=== PATIENT | female | born 1985 | race Caucasian/White ===

== ENCOUNTER → 2017-08-21 | Outpatient (CLI) | payer OTHER ==
--- NOTE | 2017-08-21 18:56 | REP ---
Left shoulder three views : There is no fracture or dislocation. Mineralization and joint spaces are normal. There are no calcifications or foreign bodies. Impression: Negative left shoulder . Signed by Artie Jean MD 08/21/2017 06:48 P
== END ==
LOC: M LRY 17:23
PROVIDERS: ATTEND Nurse Practitioner Family
DX: M25.512 Pain in left shoulder (principal)

== ENCOUNTER → 2019-08-08 | Outpatient (CLI) | payer BC, OTHER ==
--- NOTE | 2019-08-08 15:00 | REP ---
LEFT HAND, FOUR VIEWS: There is no evidence of an acute fracture, dislocation or intrinsic bone disease. IMPRESSION: No fracture or dislocation. Electronically Signed by Artie Ibrahim MD 08/08/2019 03:19 P
== END ==
LOC: M LRY 13:46
PROVIDERS: ATTEND Nurse Practitioner Family
DX: S69.92XA Unspecified injury of left wrist, hand and finger(s), initial encounter (principal); X58.XXXA Exposure to other specified factors, initial encounter; Y92.9 Unspecified place or not applicable

== ENCOUNTER 2019-08-21 10:21 | Emergency (ER) | payer BC, OTHER ==
[~2019-08-21] VITALS: Ht 162.6 cm; Wt 59.9 kg
[2019-08-21 10:21] VITALS: BP 140/88
[2019-08-21] MEDS ORDERED: PRED10TA2 PO (10:53)
[2019-08-21] MEDS ORDERED: predniSONE 20 MG TAB PO ONE (11:00)
== END 2019-08-21 11:00 | disposition home or self-care (01) ==
LOC: M ED 10:21
DX: L24.9 Irritant contact dermatitis, unspecified cause (principal)

== ENCOUNTER 2020-11-02 12:58 | Emergency (ER) | payer BC ==
[~2020-11-02] VITALS: Ht 162.6 cm; Wt 69.5 kg
[~2020-11-02 12:58] MED LIST: PRED10TA2 PO
[2020-11-02 13:43] LABS: BASO # 0.1 10^3/uL (0.0-0.2); BASO % 0.9 % (0.0-1.0); EOS # 0.2 10^3/uL (0.0-0.5); EOS % 1.9 % (0.0-3.0); HEMOGLOBIN 13.2 g/dl (12.0-15.5); LYMPH # 2.3 10^3/uL (1.5-5.0); LYMPH % 25.1 % (24.0-44.0); MEAN CORPUSCULAR HEMOGLOBIN 30.8 pg (27.0-33.0); MEAN CORPUSCULAR HGB CONC 32.2 g/dl (32.0-36.5); MEAN CORPUSCULAR VOLUME 95.8 fl (80.0-96.0); MONO # 0.7 10^3/uL (0.0-0.8); MONO % 7.2 % (0.0-5.0); NEUTROPHILS % 64.7 % (36.0-66.0); PLATELET COUNT, AUTOMATED 256 10^3/uL (150-450); RED BLOOD COUNT 4.28 10^6/uL (4.00-5.40); WHITE BLOOD COUNT 9.3 10^3/uL (4.0-10.0)
[2020-11-02 14:04] LABS: ALBUMIN 4.3 GM/DL (3.2-5.2); ALT/SGPT 19 U/L (12-78); BILIRUBIN,DIRECT < 0.1 MG/DL (0.0-0.2); BILIRUBIN,TOTAL 0.3 MG/DL (0.2-1.0); BLOOD UREA NITROGEN 9 MG/DL (7-18); CALCIUM LEVEL 9.6 MG/DL (8.5-10.1); CARBON DIOXIDE LEVEL 28 MEQ/L (21-32); CHLORIDE LEVEL 105 MEQ/L (98-107); CREATININE FOR GFR 0.83 MG/DL (0.55-1.30); GLOMERULAR FILTRATION RATE > 60.0 (>60); GLUCOSE, FASTING 78 MG/DL (70-100); LIPASE 45 U/L (73-393); POTASSIUM SERUM 4.2 MEQ/L (3.5-5.1); SODIUM LEVEL 137 MEQ/L (136-145)
[2020-11-02 14:06] LABS: HCG, SERUM QUALITATIVE NEGATIVE (NEGATIVE)
--- NOTE | 2020-11-02 16:02 | REP ---
INDICATION: pelvic cramping. COMPARISON: None. TECHNIQUE: Transabdominal scanning performed. FINDINGS: Uterine dimensions are 6.6 x 3.5 x 4.1 cm. Endometrial echo is 9 mm in AP dimension and centrally placed. The bladder is empty . The right ovary has dimensions of 3.0 x 2.9 x 2.5 cm. It's Doppler flow is normal with a resistive index of 0.51. The left ovary dimensions are 2.7 x 1.2 x 1.6 cm. It's Doppler flow was normal with resistive index of 0.66. There is no adnexal mass identified. No free fluid is seen in the cul-de-sac. IMPRESSION: Negative pelvic ultrasound. <Electronically signed by Artie Ibrahim > 11/02/20 [id number]
[2020-11-02] MEDS ORDERED: FLAG500T PO (17:10)
[2020-11-02] MEDS ORDERED: metroNIDAZOLE (FLAGYL) 500MG TABLET PO ONE (17:15)
[2020-11-02 17:19] VITALS: BP 131/69
[2020-11-02 17:59] LABS: CHLAMYDIA DNA AMPLIFICATION NEGATIVE (NEGATIVE); GC DNA AMPLIFICATION NEGATIVE (NEGATIVE)
== END 2020-11-02 17:21 | disposition home or self-care (01) ==
LOC: M ED 12:58
DX: N76.0 Acute vaginitis (principal); Z87.440 Personal history of urinary (tract) infections

== ENCOUNTER → 2021-11-03 | Outpatient (REF) | payer BC ==
[~2021-11-03] MED LIST changes: +FLAG500T PO
[2021-11-03 13:11] LABS: HEMATOCRIT 35.5 % (36.0-47.0); HEMOGLOBIN 12.1 g/dl (12.0-15.5); MEAN CORPUSCULAR HEMOGLOBIN 31.5 pg (27.0-33.0); MEAN CORPUSCULAR HGB CONC 34.1 g/dl (32.0-36.5); MEAN CORPUSCULAR VOLUME 92.4 fl (80.0-96.0); PLATELET COUNT, AUTOMATED 271 10^3/uL (150-450); RED BLOOD COUNT 3.84 10^6/uL (4.00-5.40); WHITE BLOOD COUNT 9.8 10^3/uL (4.0-10.0)
[2021-11-03 14:10] LABS: HCG, SERUM QUANTITATIVE 38149 MIU/ML; HEPATITIS B SURFACE ANTIGEN NEGATIVE (NEGATIVE)
[2021-11-03 14:30] LABS: HEPATITIS C VIRUS ABY INDEX 0.1 INDEX (<0.8)
[2021-11-03 14:31] LABS: HIV 1&2 SCREEN CENTAUR NEGATIVE (NEGATIVE)
== END ==
LOC: M LAB REF 12:21
PROVIDERS: ATTEND Obstetrics & Gynecology
DX: Z32.01 Encounter for pregnancy test, result positive (principal)

== ENCOUNTER → 2022-02-27 | Outpatient (CLI) | payer BC ==
[2022-02-27 13:43] LABS: HEMATOCRIT 30.9 % (36.0-47.0); HEMOGLOBIN 10.1 g/dl (12.0-15.5); MEAN CORPUSCULAR HEMOGLOBIN 31.6 pg (27.0-33.0); MEAN CORPUSCULAR HGB CONC 32.7 g/dl (32.0-36.5); MEAN CORPUSCULAR VOLUME 96.6 fl (80.0-96.0); PLATELET COUNT, AUTOMATED 262 10^3/uL (150-450); WHITE BLOOD COUNT 14.6 10^3/uL (4.0-10.0)
== END ==
LOC: M PLALAB 09:17
PROVIDERS: ATTEND Obstetrics & Gynecology
DX: O34.211 Maternal care for low transverse scar from previous cesarean delivery (principal)

== ENCOUNTER → 2022-03-02 | Outpatient (CLI) | payer BC | LOC: M WHC 06:51 | PROVIDERS: ATTEND Obstetrics & Gynecology | DX: O34.211 Maternal care for low transverse scar from previous cesarean delivery (principal) ==

== ENCOUNTER → 2022-04-04 | Outpatient (CLI) | payer BC ==
[~2022-04-04] MED LIST changes: +FAMO1TAB11; +FERR325T19
== END ==
LOC: M WHC 13:29
PROVIDERS: ATTEND Obstetrics & Gynecology
DX: Z36.2 Encounter for other antenatal screening follow-up (principal); O40.3XX0 Polyhydramnios, third trimester, not applicable or unspecified; O34.211 Maternal care for low transverse scar from previous cesarean delivery; Z3A.34 34 weeks gestation of pregnancy

== ENCOUNTER → 2022-04-18 | Outpatient (CLI) | payer BC | LOC: M RAD 13:22 | PROVIDERS: ATTEND Obstetrics & Gynecology | DX: O34.211 Maternal care for low transverse scar from previous cesarean delivery (principal) ==

== ENCOUNTER → 2022-05-03 | Outpatient (CLI) | payer BC | LOC: M LABSMTC 10:38 | PROVIDERS: ATTEND Anesthesiology | DX: Z01.812 Encounter for preprocedural laboratory examination (principal) ==

== ENCOUNTER 2022-05-08 05:23 | Inpatient (IN) | payer BC ==
[2022-05-08] VITALS (8 sets, daily range): BP systolic 99–112; BP diastolic 53–65
[~2022-05-08] VITALS: Ht 162.6 cm; Wt 80.4 kg
[2022-05-08] MEDS ORDERED: LR 1,000 ML IV ONE (05:30)
[2022-05-08] MEDS ORDERED: ceFAZolin SOD 2 GM in IV 1 EA IV ONE (05:45)
[2022-05-08] MEDS ORDERED: BICITRA 30ML SOLN UDC PO ONE (05:45)
[2022-05-08] MEDS ORDERED: LR 1,000 ML IV SCH ×2 (06:30→08:55)
[2022-05-08 06:32] LABS: HEMATOCRIT 33.6 % (36.0-47.0); HEMOGLOBIN 11.3 g/dl (12.0-15.5); MEAN CORPUSCULAR HEMOGLOBIN 30.7 pg (27.0-33.0); MEAN CORPUSCULAR HGB CONC 33.6 g/dl (32.0-36.5); MEAN CORPUSCULAR VOLUME 91.3 fl (80.0-96.0); PLATELET COUNT, AUTOMATED 224 10^3/uL (150-450); RED BLOOD COUNT 3.68 10^6/uL (4.00-5.40)
[2022-05-08] MEDS ORDERED: PHENYLephrine 500MCG 5ML (100MCG/ML) SYRINGE As Ordered ONE (07:54)
[2022-05-08] MEDS ORDERED: ePHEDrine SULFATE 25 MG/5 ML(5MG/ML) SYRINGE As Ordered ONE (07:54)
[2022-05-08] MEDS ORDERED: OXYTOCIN INJ 10 UNITS/ML VIAL (J2590) As Ordered ONE (07:54)
[2022-05-08] MEDS ORDERED: ONDANSETRON 4MG 2ML VIAL As Ordered ONE (07:54)
[2022-05-08] MEDS ORDERED: MORPHINE PRES-FREE INJ 10 MG/10 ML VIAL As Ordered ONE (07:54)
[2022-05-08 07:57] LABS: GC DNA AMPLIFICATION NEGATIVE (NEGATIVE)
[2022-05-08] MEDS ORDERED: KETOROLAC 60MG 2ML VIAL As Ordered ONE (08:26)
[2022-05-08] MEDS ORDERED: MEPERIDINE 50 MG/ML 1ML VIAL (J2175) As Ordered ONE (08:26)
[2022-05-08] MEDS ORDERED: METHYLERGONOVINE MALEATE 0.2 MG/ML VIAL (J2210) IM PRN (08:55)
[2022-05-08] MEDS ORDERED: ANUSOL HC CREAM 30GM TOP PRN (08:55)
[2022-05-08] MEDS ORDERED: RHOGAM 300 MCG (1500 IU) INJ (J2790) IM SCH (08:55)
[2022-05-08] MEDS ORDERED: ONDANSETRON 4MG 2ML VIAL IV PRN ×2 (08:55→09:05)
[2022-05-08] MEDS ORDERED: OXYTOCIN DRIP 30 UNITS in IV 1 EA IV SCH (08:55)
[2022-05-08] MEDS ORDERED: PERCOCET PO (08:58)
[2022-05-08] MEDS ORDERED: COLA100C5 PO (08:58)
[2022-05-08] MEDS ORDERED: IBUP80TA PO (08:58)
[2022-05-08] MEDS: DOCUSATE SODIUM 100MG CAPSULE PO SCH ×2 (09:00→20:13)
[2022-05-08] MEDS: PRENATAL VITAMINS CHEWABLE TABLET PO SCH (09:00)
[2022-05-08] MEDS: SLF 3 ML SYR IV SCH ×2 (09:05→17:05)
[2022-05-08] MEDS ORDERED: **NOTE PATIENT COMMENT** MISC XX SCH (09:05)
[2022-05-08] MEDS ORDERED: diphenhydrAMINE 50MG/ML VIAL (J1200) IV PRN (09:05)
[2022-05-08] MEDS ORDERED: METOCLOPRAMIDE INJ 10MG/2ML VIAL (J2765 PER 1) IV PRN (09:05)
[2022-05-08] MEDS ORDERED: fentaNYL 100 MCG/2 ML INJECTION IV PRN (09:05)
[2022-05-08] MEDS ORDERED: NALOXONE INJ 0.4MG/1ML VIAL (J2310 PER 1MG) IV PRN ×2 (09:05)
[2022-05-08] MEDS ORDERED: oxyCODONE 5MG TAB PO PRN (09:05)
[2022-05-08] MEDS ORDERED: MEPERIDINE INJ 25 MG/ML VIAL (J2175) IV PRN (09:05)
[2022-05-08] MEDS ORDERED: HYDROMORPHONE HCL 0.5 MG/ 0.5 ML SYRINGE (J1170 PER 1) IV PRN (09:05)
[2022-05-08] MEDS: PERCOCET 5MG/325MG TAB PO PRN ×2 (13:34→20:14)
[2022-05-08] MEDS: KETOROLAC 30 MG/ML 1ML VIAL IV SCH ×2 (15:37→20:13)
[2022-05-09 02:00] VITALS: BP 98/60
[2022-05-09] MEDS: SLF 3 ML SYR IV SCH (02:26)
[2022-05-09] MEDS: KETOROLAC 30 MG/ML 1ML VIAL IV SCH (02:26)
[2022-05-09 06:00] VITALS: BP 108/58
[2022-05-09 06:31] LABS: HEMATOCRIT 25.8 % (36.0-47.0); MEAN CORPUSCULAR HEMOGLOBIN 30.1 pg (27.0-33.0); MEAN CORPUSCULAR HGB CONC 31.8 g/dl (32.0-36.5); MEAN CORPUSCULAR VOLUME 94.9 fl (80.0-96.0); PLATELET COUNT, AUTOMATED 178 10^3/uL (150-450); RED BLOOD COUNT 2.72 10^6/uL (4.00-5.40)
[2022-05-09 06:44] LABS: HEMOGLOBIN 8.2 g/dl (12.0-15.5)
[2022-05-09] MEDS: PRENATAL VITAMINS CHEWABLE TABLET PO SCH (08:02)
[2022-05-09] MEDS: DOCUSATE SODIUM 100MG CAPSULE PO SCH ×2 (08:02→21:58)
[2022-05-09] MEDS: PERCOCET 5MG/325MG TAB PO PRN ×3 (08:03→21:29)
[2022-05-09 10:00] VITALS: BP 100/56
[2022-05-09] MEDS: IBUPROFEN 800 MG TAB PO SCH ×2 (10:51→18:33)
[2022-05-09 14:00] VITALS: BP 107/64
[2022-05-09 18:00] VITALS: BP 125/68
[2022-05-09 22:00] VITALS: BP 116/68
[2022-05-09] MEDS: SIMETHICONE 80MG CHEW TAB PO PRN (22:07)
[2022-05-10 02:00] VITALS: BP 122/70
[2022-05-10] MEDS: IBUPROFEN 800 MG TAB PO SCH ×3 (02:30→10:38)
[2022-05-10] MEDS: PERCOCET 5MG/325MG TAB PO PRN ×2 (04:20→07:29)
[2022-05-10 05:13] VITALS: BP 96/59
[2022-05-10] MEDS: DOCUSATE SODIUM 100MG CAPSULE PO SCH (07:28)
[2022-05-10] MEDS: PRENATAL VITAMINS CHEWABLE TABLET PO SCH (07:28)
[2022-05-10] MEDS: SIMETHICONE 80MG CHEW TAB PO PRN (07:28)
[2022-05-10] MEDS ORDERED: MEASLES,MUMPS,RUBELLA VACCINE INJ (MMR-II) (90707) SC.IMMUN ONE (09:00)
[2022-05-10 10:00] VITALS: BP 123/77
== END 2022-05-10 11:30 | disposition home or self-care (01) | DRG 540 ==
LOC: M LDI 05:23 → M OBS 10:30
PROVIDERS: ADMIT Obstetrics & Gynecology; ATTEND Obstetrics & Gynecology
PROC: 0UB70ZZ Excision of Bilateral Fallopian Tubes, Open Approach (ICD-10-PCS; 2022-05-08)
PROC: 10D00Z1 Extraction of Products of Conception, Low, Open Approach (ICD-10-PCS; principal; 2022-05-08 07:30)
DX: O34.211 Maternal care for low transverse scar from previous cesarean delivery (principal); Z3A.39 39 weeks gestation of pregnancy; Z30.2 Encounter for sterilization; Z37.0 Single live birth

== ENCOUNTER → 2023-08-16 | Outpatient (REF) ==
[~2023-08-16] MED LIST changes: +COLA100C5 PO; +IBUP80TA PO; +PERCOCET PO
== END ==
LOC: M PLAIMG 13:59
PROVIDERS: ATTEND Internal Medicine
DX: R52 Pain, unspecified (principal)

== ENCOUNTER → 2024-02-18 | Outpatient (CLI) | payer BC ==
[2024-02-18 15:57] LABS: BASO # 0.1 10^3/uL (0.0-0.2); BASO % 1.5 % (0.0-1.0); EOS # 0.3 10^3/uL (0.0-0.5); EOS % 3.5 % (0.0-3.0); HEMATOCRIT 35.1 % (36.0-47.0); HEMOGLOBIN 11.3 g/dl (12.0-15.5); LYMPH # 2.5 10^3/uL (1.5-5.0); LYMPH % 31.7 % (24.0-44.0); MEAN CORPUSCULAR HEMOGLOBIN 29.7 pg (27.0-33.0); MEAN CORPUSCULAR HGB CONC 32.2 g/dl (32.0-36.5); MEAN CORPUSCULAR VOLUME 92.1 fl (80.0-96.0); MONO # 0.6 10^3/uL (0.0-0.8); NEUTROPHILS # 4.4 10^3/uL (1.5-8.5); PLATELET COUNT, AUTOMATED 292 10^3/uL (150-450); RED BLOOD COUNT 3.81 10^6/uL (4.00-5.40); WHITE BLOOD COUNT 7.8 10^3/uL (4.0-10.0)
[2024-02-18 16:19] LABS: ALBUMIN 3.8 G/DL (3.2-5.2); ALKALINE PHOSPHATASE 77 U/L (46-116); ALT/SGPT 14 U/L (7.0-40); AST/SGOT < 8 U/L (<34); BILIRUBIN,TOTAL 0.3 MG/DL (0.3-1.2); BLOOD UREA NITROGEN 9 MG/DL (9-23); CALCIUM LEVEL 9.2 MG/DL (8.5-10.1); CARBON DIOXIDE LEVEL 29 MMOL/L (20-31); CHLORIDE LEVEL 105 MMOL/L (98-107); CHOLESTEROL LEVEL 179 MG/DL (<200); CHOLESTEROL RISK RATIO 3.25 (<5); CREATININE FOR GFR 0.63 MG/DL (0.55-1.30); GLOMERULAR FILTRATION RATE > 60.0 (>60); GLUCOSE, FASTING 110 MG/DL (60-100); LDL CHOLESTEROL 93.6 MG/DL (<100); POTASSIUM SERUM 4.6 MMOL/L (3.5-5.1); SODIUM LEVEL 139 MMOL/L (136-145); TOTAL PROTEIN 7.1 G/DL (5.7-8.2); TRIGLYCERIDES LEVEL 152 MG/DL (<150)
[2024-02-18 16:20] LABS: TOTAL 25(OH) VITAMIN D 12.7 NG/ML (20.0-100.0)
[2024-02-18 16:21] LABS: FOLATE 19.6 NG/ML (>5.4); THYROID STIMULATING HORMONE 1.193 uIU/ML (0.55-4.78)
[2024-02-18 16:22] LABS: VITAMIN B12 LEVEL 315 PG/ML (211-911)
== END ==
LOC: M LAB 14:39
PROVIDERS: ATTEND Physician Assistant
DX: Z13.6 Encounter for screening for cardiovascular disorders (principal)

== ENCOUNTER → 2024-04-29 | Outpatient (CLI) | payer BC | LOC: M SOG 07:56 | PROVIDERS: ATTEND Physician Assistant | DX: M25.552 Pain in left hip (principal) ==

== ENCOUNTER → 2024-05-26 | Outpatient (CLI) | payer BC ==
[~2024-05-26] MED LIST changes: +ISOVUE-300 61% 100ML VIAL As Ordered ONE; +LIDOCAINE 1% MDV 20ML VIAL As Ordered ONE; +PROHANCE 279.3MG/ML 5ML VIAL As Ordered ONE
== END ==
LOC: M RAD 06:29
PROVIDERS: ATTEND Physician Assistant
DX: M25.552 Pain in left hip (principal)
CPT/HCPCS: 27093; 73723; 77002; A9576; Q9967

== ENCOUNTER → 2024-06-03 | Outpatient (CLI) | payer BC ==
[~2024-06-03] MED LIST changes: -ISOVUE-300 61% 100ML VIAL As Ordered ONE; -LIDOCAINE 1% MDV 20ML VIAL As Ordered ONE; -PROHANCE 279.3MG/ML 5ML VIAL As Ordered ONE
== END ==
LOC: M SOG 07:59
PROVIDERS: ATTEND Physician Assistant
DX: M54.50 Low back pain, unspecified (principal)

== ENCOUNTER → 2025-08-21 | Outpatient (REF) | payer BC ==
[2025-08-25 14:41] LABS: HPV APTIMA Not Detected (Not Detected)
== END ==
LOC: M SFHCLERA 17:01
DX: Z01.419 Encounter for gynecological examination (general) (routine) without abnormal findings (principal)
CPT/HCPCS: 87624; G0123